=== PATIENT | female | born 1990 | race Caucasian/White ===

== ENCOUNTER 2017-09-29 20:09 | Emergency (ER) | payer BC ==
[~2017-09-29] VITALS: Ht 162.6 cm; Wt 98.4 kg
[2017-09-29] MEDS ORDERED: ONDANSETRON PF 4 MG/2 ML VIAL. ONE (20:25)
[2017-09-29] MEDS ORDERED: PROMETHAZINE 25 MG in IV NORMAL SALINE 50ML 50 ML IV PRN (21:00)
[2017-09-29] MEDS ORDERED: IV NORMAL SALINE 1,000ML 1,000 ML IV SCH (21:00)
[2017-09-29] MEDS ORDERED: ONDANSETRON PF 4 MG/2 ML VIAL. IV ONE (21:00)
[2017-09-29 21:03] LABS: BASO % 1 % (0-3); EOS % 1 % (0-3); HEMATOCRIT 44.4 % (36.0-47.0); HEMOGLOBIN 15.5 g/dL (12.0-15.5); LYMPH # 0.9 x10^3/uL (1.0-4.8); LYMPH % 10 % (24-48); MEAN CORPUSCULAR HEMOGLOBIN 29 pg (25-35); MEAN CORPUSCULAR HGB CONC 35 g/dL (31-37); MEAN CORPUSCULAR VOLUME 84 fL (79-100); MONO # 0.5 x10^3/uL (0.0-1.1); MONO % 6 % (0-9); NEUT # 7.6 x10^3uL (1.8-7.7); NEUT % 83 % (31-73); PLATELET COUNT 311 x10^3/uL (140-400); RED BLOOD COUNT 5.27 x10^6/uL (3.50-5.40); RED CELL DISTRIBUTION WIDTH 13.2 % (11.5-14.5); WHITE BLOOD COUNT 9.1 x10^3/uL (4.0-11.0)
[2017-09-29 21:20] LABS: ALBUMIN 4.1 g/dL (3.4-5.0); TOTAL BILIRUBIN 0.8 mg/dL (0.2-1.0); TOTAL PROTEIN 8.1 g/dL (6.4-8.2)
[2017-09-29 21:21] LABS: POTASSIUM 3.6 mmol/L (3.5-5.1)
[2017-09-29] MEDS ORDERED: ONDA4TAB10 PO (22:06)
[2017-09-29] MEDS ORDERED: PROM25SU32 RC (22:06)
[2017-09-29 22:07] VITALS: BP 112/52
--- NOTE | 2017-09-29 22:08 | PHYS DOC ---
General Chief Complaint: NAUSEA/VOMITING/DIARRHEA Stated Complaint: VOMITING,DIARRHEA,HEADACHE X2 DYS Time Seen by MD: 20:29 Source: patient Exam Limitations: no limitations Problems: History of Present Illness Initial Comments Patient is a 26-year-old female who comes in the ED complaining of vomiting diarrhea. Patient states for the past 2 days she's had intermittent abdominal cramping, nonbloody emesis and loose watery stools. She denies any travel or bad food exposure no focal abdominal pain complaints. She's had chills and sweats no measured fevers. This evening she's had a headache and been very tired especially when trying to be active. On arrival she is afebrile heart rate 127 bpm, it did normalize to 89 bpm with IV hydration. Timing/Duration: getting worse, other Severity: severe Modifying Factors: worse with eating, worse with movement, improves with rest Associated Symptoms: fever/chills, headaches, malaise, nausea/vomiting, other Allergies: Coded Allergies: No Known Drug Allergies (Unverified , 09/29/17) Past Medical History Medical History: hypertension Surgical History: no surgical history Social History Smoker: non-smoker Alcohol: occasionally Drugs: none Review of Systems Constitutional: see HPI Respiratory: denies cough, denies shortness of breath, denies wheezing Cardiovascular: denies chest pain, denies palpitations, denies syncope Gastrointestinal: see HPI Genitourinary: denies dysuria, denies frequency, denies hematuria Musculoskeletal: denies back pain, denies joint swelling, denies neck pain Psychiatric/Neurological: headache, denies numbness, denies paresthesia Physical Exam General Appearance: moderate distress (very nauseous), obese Ear, Nose, Throat: hearing grossly normal, normal ENT inspection, normal pharynx (dry membranes) Neck: non-tender, supple Respiratory: normal breath sounds, no respiratory distress Cardiovascular: normal peripheral pulses, regular rate, rhythm Gastrointestinal: soft (mildly distended, tympanic, negative Antonio negative McBurney positive abdominal muscle tenderness without rebound or guarding no palpable masses bowel sounds are normal) Rectal: deferred Back: no CVA tenderness, no vertebral tenderness Extremities: non-tender, normal inspection Neurologic/Psychiatric: hood maker II-XII nml as tested, no motor/sensory deficits, alert, normal mood/affect, oriented x 3 Skin: pallor (poor turgor) Orders, Labs, Meds Patient received Phenergan and Zofran intravenously as well as normal saline bolus. 2206: Labs reviewed with the patient, she's feeling much better and has tolerated by mouth. Her color has improved she denies any headache and her heart rate has normalized. Expresses the desire for discharge I discussed signs and symptoms to monitor as well as indications for urgent return to the department. Discussed oral hydration, prescription and over-the- counter medications. Her questions were answered to her satisfaction and she expressed agreement and understanding of treatment plan. Departure Time of Disposition: 22:07 Disposition: 01 HOME, SELF-CARE Diagnosis: gastroenteritis likely viral, dehydration Condition: GOOD Patient Instructions: Dehydration, Adult, [id number], Viral Gastroenteritis, [id number] Additional Instructions: Please review the patient education materials given by ED staff. Aggressive hydration with Gatorade and water. Clear liquids today, advance diet slowly tomorrow as tolerated. Prescription: Zofran ODT, Phenergan suppositories Follow-up with your doctor in 5-7 days for recheck. Return to ED with new or changing symptoms. SYEDA GRIJALVA DO Sep 29, 2017 22:08
[2017-09-29] MEDS ORDERED: PROMETHAZINE 25MG 4TABLET STARTPACK. PO ONE (22:11)
[2017-09-29] MEDS ORDERED: ONDANSETRON 4MG ODT 4TABLET STARTPACK. PO ONE ×2 (22:12→22:15)
[2017-09-29] MEDS ORDERED: PROCHLORPERAZINE 25 MG PR ONE (22:15)
[2017-09-29 22:47] LABS: BILIRUBIN,URINE NEG (NEG); CLARITY,URINE HAZY; COLOR,URINE YELLOW; GLUCOSE,URINE NEG (NEG)
[2017-09-29 22:48] LABS: BACTERIA,URINE FEW /HPF (0-FEW); NITRITE,URINE NEG (NEG); SQUAMOUS EPITHELIAL CELL,UR MANY /LPF; UROBILINOGEN,URINE 0.2 mg/dL (0.2 mg/dL)
== END 2017-09-29 22:21 | disposition home or self-care (01) ==
LOC: ER 20:09
DX: K52.9 Noninfective gastroenteritis and colitis, unspecified (principal); E86.0 Dehydration; R51 Headache; I10 Essential (primary) hypertension
CPT/HCPCS: 36415; 80053; 81001; 83690; 85025; 96365; 96375; 99284; J2405; J2550; Q0162; J7030